=== PATIENT | male | born 1980 | race Two or more races ===

== ENCOUNTER 2024-03-25 05:45 | Emergency (ER) | payer OTHER ==
[~2024-03-25] VITALS: Ht 167.6 cm; Wt 71.5 kg
[2024-03-25 05:56] VITALS: BP 147/92; PULSE 73; RESP 14; TEMP 97.3
[2024-03-25 06:38] VITALS: O2SAT 98
[2024-03-25] MEDS: TETRACAINE HCL 0.5% OPTH(EYE) SOLN 4ML EACHEYE ONE (06:46)
[2024-03-25] MEDS: FLUORESCEIN SOD OPTH TEST STRIP OP ONE (06:46)
[2024-03-25] MEDS ORDERED: TOB03OS OP (07:13)
== END 2024-03-25 07:32 | disposition home or self-care (01) ==
LOC: ER 05:45
DX: S05.02XA Injury of conjunctiva and corneal abrasion without foreign body, left eye, initial encounter (principal); S05.01XA Injury of conjunctiva and corneal abrasion without foreign body, right eye, initial encounter; Z77.098 Contact with and (suspected) exposure to other hazardous, chiefly nonmedicinal, chemicals; X58.XXXA Exposure to other specified factors, initial encounter; Y93.89 Activity, other specified; Y92.89 Other specified places as the place of occurrence of the external cause; Y99.0 Civilian activity done for income or pay